=== PATIENT | male | born 1955 | race Caucasian/White ===

== ENCOUNTER 2022-03-04 21:24 | Emergency (ER) | payer OTHER ==
[~2022-03-04] VITALS: Ht 177.8 cm; Wt 77.1 kg
[2022-03-04] MEDS ORDERED: IBUP-1955 PO (23:52)
--- NOTE | 2022-03-04 23:58 | NUR ---
Patient discharged to home in stable condition with family taking patient home. Written and verbal after care instructions given. Patient verbalizes understanding of instructions. Stressed follow up or return to ER for worsening s/s.
[2022-03-04 23:59] VITALS: BP 122/75
== END 2022-03-05 | disposition home or self-care (01) ==
LOC: ER 21:32
DX: S67.21XA Crushing injury of right hand, initial encounter (principal); V48.4XXA Person boarding or alighting a car injured in noncollision transport accident, initial encounter; Y92.89 Other specified places as the place of occurrence of the external cause; H54.7 Unspecified visual loss; E78.5 Hyperlipidemia, unspecified; K21.9 Gastro-esophageal reflux disease without esophagitis
CPT/HCPCS: 73130; A4663